=== PATIENT | male | born 1950 | race Caucasian/White ===

== ENCOUNTER 2020-06-07 00:43 | Emergency (ER) | payer MEDICARE, OTHER ==
[2020-06-07 01:41] LABS: BASOPHIL 0.4 % (0-2); EOSINOPHIL 1.1 % (0-7); HCT 38.8 % (42.0-52.0); HGB 13.5 g/dl (13.2-18.0); LYMPHOCYTE 11.4 % (15-48); MCH 31.5 pg (25.0-31.0); MCHC 34.8 g/dL (32.0-36.0); MCV 90.7 fL (78.0-100.0); MONOCYTE 9.1 % (0-12); MPV 12.4 fL (6.0-9.5); NEUTROPHIL 77.6 % (41-80); NRBC 0; PLT 168 K/uL (150-400); RBC 4.28 M/uL (4.70-6.00); RDW 12.4 % (11.5-14.0); WBC 10.4 K/uL (4.0-10.5)
[2020-06-07] MEDS ORDERED: COLCRYS0.6 MG PO (03:08)
[2020-06-07] MEDS ORDERED: KETOROLAC TROME10 MG PO (03:08)
== END 2020-06-07 03:30 | disposition home or self-care (01) ==
LOC: FER 00:43
PROVIDERS: Emergency Medicine
DX: M10.9 Gout, unspecified (principal); M71.9 Bursopathy, unspecified; I10 Essential (primary) hypertension; E11.9 Type 2 diabetes mellitus without complications; I48.91 Unspecified atrial fibrillation; Z87.81 Personal history of (healed) traumatic fracture; Z79.01 Long term (current) use of anticoagulants; Z79.899 Other long term (current) drug therapy; Z79.84 Long term (current) use of oral hypoglycemic drugs
CPT/HCPCS: 36415; 73564; 73721; 84550; 85025; 87070; 87205; 89060; 96372; J1885; J3301